=== PATIENT | female | born 1980 | race Caucasian/White ===

== ENCOUNTER 2023-05-18 10:45 | Emergency (ER) | payer OTHER, SELFPAY ==
[2023-05-18 11:03] VITALS: BP 127/81; PULSE 109; RESP 18; TEMP 36.8; O2SAT 99
[2023-05-18 11:25] VITALS: BP 120/83; PULSE 93; RESP 18; O2SAT 98
[2023-05-18 13:17] VITALS: BP 126/92; PULSE 88; RESP 18; O2SAT 100
--- NOTE | 2023-05-18 13:42 | ED.EYEPROB ---
HPI - Eye Problem General Chief complaint: Eye Problems Stated complaint: rash and pain to right eye Time Seen by Provider: 05/18/23 12:19 Source: patient Mode of arrival: ambulatory Limitations: no limitations History of Present Illness HPI Narrative: This is a 43-year-old female that presents to the emergency department for right eye pain. Present since she woke up this morning. Reports tearing and redness. No known injury to the eye. Reports her vision is blurry. She does not wear contact lenses. Denies flashes or floaters. Related Data Allergies Allergy/AdvReac Type Severity Reaction Status Date / Time Sulfa (Sulfonamide Allergy Unknown THROAT Verified 05/18/23 10:46 Antibiotics) SWELLING Review of Systems Review of Systems: CONSTITUTIONAL: Denies fever EYES: Reports visual changes, redness All systems reviewed & are unremarkable except as noted in HPI and below PMFSH Past Medical History Medical History (Updated 05/18/23 @ 13:49 by Gia Myers PA-C) No active medical problems Social History Social History (Updated 05/18/23 @ 13:46 by Gia Myers PA-C) Substance use: never Exam Narrative: GENERAL: Well-appearing, well-nourished, and in no acute distress. HEAD: Normocephalic, atraumatic. EYES: PERRLA and EOMI. Right eye with mild conjunctival injection and tearing. Eyelid everted, no foreign bodies noted. Pressure on the right eye 15. Visual acuity in the right eye 20/70, 20/40 in the left eye EXTREMITIES: Normal range of motion. No edema. SKIN: Warm, dry, no rash. NEURO: No focal deficits. Alert and oriented x3. PSYCH: Normal mood and affect Course Course Emergency Course: Patient updated on evaluation in the ER and agrees with plan of care Vital Signs Vital signs: Vital Signs Temperature 98.3 F 05/18/23 11:03 Pulse Rate 109 H 05/18/23 11:03 Respiratory Rate 18 05/18/23 11:03 Blood Pressure 127/81 05/18/23 11:03 Pulse Oximetry 99 05/18/23 11:03 Oxygen Delivery Room Air 05/18/23 11:03 Temperature 98.3 F 05/18/23 11:03 Pulse Rate 88 05/18/23 13:17 Respiratory Rate 18 05/18/23 13:17 Blood Pressure 126/92 H 05/18/23 13:17 Pulse Oximetry 100 05/18/23 13:17 Oxygen Delivery Room Air 05/18/23 11:03 MDM - Eye Problem MDM Narrative Medical decision making narrative: Patient presents emergency department for right eye redness, pain and tearing. Patient with normal pressure in the eye. No concerning findings on exam. Visual acuity is slightly worse in the affected eye, likely due to having a small corneal abrasion. Patient will be started on antibiotic eye ointment for the next 3 days. She was instructed to follow-up with an territory sales consultant. She was given warnings to return to the ER Differential Diagnosis Differential diagnosis: Likely corneal abrasion, conjunctivitis and corneal ulcer Critical Care Time Critical Care Time Critical Care Time: No Discharge Plan Discharge Clinical Impression: Corneal abrasion Qualifiers: Encounter type: initial encounter Laterality: right Qualified Code(s): S05.01XA - Injury of conjunctiva and corneal abrasion without foreign body, right eye, initial encounter Patient Disposition: Home, Self-Care Condition: Stable Instructions: Antibiotic Form, Corneal Abrasion (ED) Additional Instructions: Return to the emergency department if you experience fever, redness and swelling of your eye, worsening visual changes, or any other symptoms that are concerning to you Apply antibiotic ointment 4 times daily for the next 3 days We should have follow-up with an eye doctor. Call [facility] vision centers if needed Follow-up/Referrals: Pawan,Evans Velez MD [Primary Care Provider] - Stand Alone Forms: Work/School Release IP
[2023-05-18] MEDS: ERYTHROMYCIN OPHTH OINTMENT 1 GM TUBE 1 APPLIC RIGHT EYE (13:46)
== END 2023-05-18 14:01 | disposition home or self-care (01) ==
PROVIDERS: Emergency Provider Physician Assistant; PCP Family Medicine
DX: S05.01XA Injury of conjunctiva and corneal abrasion without foreign body, right eye, initial encounter (principal); X58.XXXA Exposure to other specified factors, initial encounter
CPT/HCPCS: 99283; A9270